=== PATIENT | male | born 1985 | race Two or more races ===

== ENCOUNTER 2022-04-03 11:16 | Outpatient (CLI) | payer OTHER | END 2022-04-03 11:24 | disposition home or self-care (01) | LOC: LAB 11:16 | DX: Z20.818 Contact with and (suspected) exposure to other bacterial communicable diseases (principal); Z20.828 Contact with and (suspected) exposure to other viral communicable diseases ==

== ENCOUNTER 2024-11-30 19:45 | Emergency (ER) | payer OTHER ==
[~2024-11-30] VITALS: Ht 185.4 cm; Wt 74.4 kg
[2024-11-30] MEDS ORDERED: 0.9 % SODIUM CHLORIDE 1,000 ML IV ONE (21:00)
[2024-11-30] MEDS ORDERED: DICYCLOMINE HCL 20 MG TABLET PO ONE (21:00)
[2024-11-30] MEDS ORDERED: FAMOtidine 10 MG/ML (4ML VIAL) IV ONE (21:00)
[2024-11-30] MEDS ORDERED: ONDANSETRON HCL 2 MG/ML VIAL IV ONE (21:00)
[2024-11-30] MEDS ORDERED: DICYCLOMINE HCL 10 MG CAPSULE PO ONE (21:39)
[2024-11-30] MEDS ORDERED: FAMOTIDINE/PF 20 MG/2 ML VIAL ONE (21:39)
[2024-11-30] MEDS ORDERED: ONDANSETRON HCL 2 MG/ML VIAL ONE (21:39)
[2024-11-30 22:11] LABS: HEMATOCRIT 46.2 % (39.0-48.0); HEMOGLOBIN 16.2 g/dL (13-16.00); MEAN CELL VOLUME 92.4 fL (80.0-100.00); MEAN CORPUSCULAR HEMOGLOBIN 32.3 pg (27.00-32.0); PLATELET COUNT 161 K/uL (150-450); RED CELL DISTRIBUTION WIDTH 13.2 % (11.5-14.5)
[2024-11-30 22:26] LABS: POTASSIUM 4.16 mEq/L (3.5-5.1)
[2024-11-30 22:27] LABS: CALCIUM 9.2 mg/dL (8.5-10.1)
[2024-11-30 22:33] LABS: ALBUMIN 4.2 gm/dL (3.4-5.0); BILIRUBIN TOTAL 0.28 mg/dL (0.3-1.2); CREATININE SERUM 0.97 mg/dL (0.70-1.30); GFR 85.29; GLOBULINA 3.4 G/DL (2.4-3.5); TOTAL PROTEIN 7.6 gm/dL (6.4-8.2)
[2024-11-30] MEDS ORDERED: ZOFRAN8 MG PO (22:39)
[2024-11-30] MEDS ORDERED: PEPCID AC20 MG PO (22:39)
== END 2024-11-30 23:06 | disposition home or self-care (01) ==
LOC: ER 19:46
PROVIDERS: General Practice
DX: J00 Acute nasopharyngitis [common cold] (principal); Z88.8 Allergy status to other drugs, medicaments and biological substances